=== PATIENT | female | born 1995 | race African-American/Black ===

== ENCOUNTER 2021-02-28 21:10 | Outpatient (CLI) | payer OTHER | END 2021-02-28 22:01 | disposition home or self-care (01) | LOC: TRG 21:10 → APU 21:19 → TRG 22:01 | PROVIDERS: ATTEND Obstetrics & Gynecology | DX: Z34.93 Encounter for supervision of normal pregnancy, unspecified, third trimester (principal); Z3A.39 39 weeks gestation of pregnancy | CPT/HCPCS: 59025 ==